=== PATIENT | male | born 1960 | race Caucasian/White ===

== ENCOUNTER → 2019-01-10 | Outpatient (CLI) | payer MEDICARE ==
[~2019-01-10] MED LIST: IOHEXOL 300 MG/ML 75 ML VIAL. IV ONE; IOHEXOL 350 MG/ML 100 ML VIAL. IV ONE
[2019-01-10 12:28] LABS: BASO # 0.1 x10^3/uL (0.0-0.2); BASO % 1 % (0-3); EOS % 0 % (0-3); HEMATOCRIT 39.1 % (39.0-53.0); LYMPH # 1.9 x10^3/uL (1.0-4.8); LYMPH % 26 % (24-48); MEAN CORPUSCULAR HEMOGLOBIN 30 pg (25-35); MEAN CORPUSCULAR HGB CONC 33 g/dL (31-37); MEAN CORPUSCULAR VOLUME 89 fL (79-100); MONO # 0.4 x10^3/uL (0.0-1.1); MONO % 5 % (0-9); NEUT % 67 % (31-73); PLATELET COUNT 240 x10^3/uL (140-400); RED BLOOD COUNT 4.38 x10^6/uL (4.30-5.70); RED CELL DISTRIBUTION WIDTH 13.5 % (11.5-14.5); WHITE BLOOD COUNT 7.4 x10^3/uL (4.0-11.0)
[2019-01-10 12:33] LABS: CALCIUM 8.7 mg/dL (8.5-10.1); CREATININE 1.1 mg/dL (0.7-1.3); GFR 68.5; POTASSIUM 4.3 mmol/L (3.5-5.1)
--- NOTE | 2019-01-10 13:26 | RAD ---
Examination: Right Lower Extremity Venous Doppler Ultrasound History: Superficial vein thrombosis Comparison: None Procedure: Craft scale, color flow 2D and spectal waveform analysis images are obtained with and without compression in the area of the common femoral vein, superficial femoral vein - femoral vein junction, main femoral vein (superficial femoral vein) and popliteal vein. Veins of the proximal calf are also imaged. Findings: There is normal duplex flow, color flow and compressibility of all visualized vein segments. No evidence of deep venous thrombus is present. Echogenicity identified in the greater saphenous vein extending from the junction of the greater saphenous vein with the common femoral vein and greater saphenous vein extending to the mid calf within the greater saphenous vein likely extensive superficial vein thrombosis. Impression: 1. No evidence of DVT. 2. Greater saphenous vein thrombosis. Please note that the thrombosis in the greater saphenous vein is very close to the junction of the greater saphenous vein the common femoral vein. Extensive superficial vein thrombosis in the greater saphenous vein extending to the mid calf level. Electronically signed by: Felipe Gibbs MD (01/10/2019 1:23 PM) [id number]
--- NOTE | 2019-01-10 13:36 | RAD ---
Examination: CT angiography chest HISTORY: History of phlebitis, elevated d-dimer Exposure: One or more of the following individualized dose reduction techniques were utilized for this examination: 1. Automated exposure control 2. Adjustment of the mA and/or kV according to patient size 3. Use of iterative reconstruction technique TECHNIQUE: Axial CT angiographic images were performed with IV contrast. Coronal and sagittal 3-D MIP reformats are performed. FINDINGS: The visualized thyroid gland grossly appears unremarkable. The central airways are patent. The caliber of the aorta grossly appears unremarkable. There is no evidence of filling defect identified in the main pulmonary arterial trunk and right and left main pulmonary arteries. There are filling defects identified in the distal basilar branches of the right lower lobe pulmonary arteries. Mild linear airspace opacity identified in the bibasilar lungs likely atelectasis or infiltrates. The visualized liver, spleen, adrenals grossly appears unremarkable Mild degenerative changes thoracic spine IMPRESSION: 1. Findings consistent with pulmonary embolus in the peripheral branches of the right lower lobe pulmonary arteries. 2. Mild bibasilar lung airspace opacities likely atelectasis or infiltrates. was informed at 1:30 PM same day exam. Electronically signed by: Felipe Gibbs MD (01/10/2019 1:33 PM) [facility]
== END ==
LOC: US 11:57
PROVIDERS: ATTEND Family Medicine
DX: I26.99 Other pulmonary embolism without acute cor pulmonale (principal); I82.811 Embolism and thrombosis of superficial veins of right lower extremity; M47.814 Spondylosis without myelopathy or radiculopathy, thoracic region
CPT/HCPCS: 36415; 71275; 80048; 85025; 85379; 93971; Q9967

== ENCOUNTER → 2019-04-08 | Outpatient (CLI) | payer MEDICARE ==
[~2019-04-08] MED LIST changes: -IOHEXOL 300 MG/ML 75 ML VIAL. IV ONE
--- NOTE | 2019-04-08 16:09 | RAD ---
RIGHT LEG VENOUS DOPPLER STUDY: Clinical indications: History of thrombophlebitis of the right leg. Findings: Duplex sonography (including hernandez scale evaluation and color flow and waveform spectral analysis) of the proximal aspect of the greater saphenous vein and proximal aspect of the profunda femoral vein and the entire length of the common femoral and superficial femoral and popliteal veins and the tibioperoneal trunk and the proximal aspect of the posterior tibial and peroneal veins of the right leg was performed. Normal compressibility, augmentation of color Doppler flow after calf compression, and respiratory variation of Doppler flow is seen. Thus, there are no sonographic findings of deep venous thrombosis within these veins. Impression: There are no sonographic findings of deep venous thrombosis within the veins discussed above of the right lower extremity. The greater saphenous vein from the mid and distal thigh is not completely compressible consistent with chronic superficial thrombophlebitis based on the previous study of January 10, 2019. Electronically signed by: Carlos Bynum MD (04/08/2019 4:06 PM) [id number]
--- NOTE | 2019-04-08 16:25 | RAD ---
CTA chest dated 04/08/2019. Comparison made to 01/10/2019. Clinical data indication: Shortness of breath. History of pulmonary embolus. TECHNIQUE: Continues axial imaging the chest performed following the intravenous administration of 100 cc Isovue-370. Study was performed as dedicated PE protocol with thin cut coronal MIPS 3-D reconstruction. One or more of the following individualized dose reduction techniques were utilized for this examination: 1. Automated exposure control 2. Adjustment of the mA and/or kV according to patient size 3. Use of iterative reconstruction technique FINDINGS: Contrast bolus is adequate. No evidence of central, lobar or segmental pulmonary embolus. Subsegmental branches are not well evaluated based on technique. Previously described peripheral embolus in the right lower lobe posterior basal segment has resolved. Heart size upper limits of normal. No pericardial effusion. No mediastinal, hilar or axillary lymphadenopathy. Thyroid gland is unremarkable. Central airways are patent. Mild diffuse bronchial wall thickening. There is some linear scar or atelectasis at both lung bases. No consolidation or pleural effusion. No pneumothorax. Images of the upper abdomen show no significant abnormality. Bone windows show no acute findings. Mild multilevel spondylosis. IMPRESSION: 1. No evidence of central, lobar or segmental pulmonary embolus. There is been interval resolution of basilar segmental pulmonary embolus on the right. 2. Linear bibasilar scar or atelectasis. Otherwise clear lungs. Electronically signed by: Dominguez Ellis MD (04/08/2019 4:22 PM) [id number]
== END | disposition home or self-care (01) ==
LOC: US 15:21
PROVIDERS: ATTEND Family Medicine
DX: I80.01 Phlebitis and thrombophlebitis of superficial vessels of right lower extremity (principal); R06.02 Shortness of breath; M47.814 Spondylosis without myelopathy or radiculopathy, thoracic region; Z86.711 Personal history of pulmonary embolism
CPT/HCPCS: 71275; 93971; Q9967

== ENCOUNTER → 2021-10-01 | Outpatient (CLI) | payer MEDICARE ==
--- NOTE | 2021-10-01 16:00 | RAD ---
INDICATION: Reason: RT LUMP POST KNEE / Spl. Instructions: / History: COMPARISON: March 2019 TECHNIQUE: Grayscale, color and doppler ultrasound images were obtained of the right lower extremity venous vasculature. RIGHT: No thrombus identified in the common femoral vein, femoral vein, popliteal vein or visualized calf ve ins. IMPRESSION: * No thrombus identified in deep venous system of right lower extremity. * No mass is identified on focused examination of the right popliteal fossa. Electronically signed by: Fernando Peoples MD (10/01/2021 3:58 PM) [id number]
== END ==
LOC: US 13:09
PROVIDERS: ATTEND Family Medicine
DX: I82.491 Acute embolism and thrombosis of other specified deep vein of right lower extremity (principal); I82.492 Acute embolism and thrombosis of other specified deep vein of left lower extremity
CPT/HCPCS: 93971

== ENCOUNTER 2021-10-31 08:59 | Emergency (ER) | payer MEDICARE, MEDICAID ==
[~2021-10-31] VITALS: Ht 172.7 cm; Wt 89.0 kg
[2021-10-31 09:10] VITALS: BP 97/63
--- NOTE | 2021-10-31 09:21 | PHYS DOC ---
General Adult EDM: Chief Complaint: INSECT BITE HPI: HPI: Patient is a 59-year-old male coming in for evaluation of right lower leg pain that woke him from sleep. Patient says the pain is gone now. He is concerned that he got bitten by a brown recluse. Patient is he woke up with a sharp pain in the medial aspect of his right lower leg. Walked around for a little bit and the pain resolved. Denies seeing any insects. Denies any bleeding or redness to the area. Review of Systems: Review of Systems: All other systems within normal limits except for as noted in the HPI Allergies: Allergies: Allergies Coded Allergies Type Severity Reaction Last Updated Verified haloperidol Allergy Unknown 01/10/19 Yes Physical Exam: PE: Constitutional: Well developed, well nourished, no acute distress, non-toxic appearance. [] HENT: Normocephalic, atraumatic, bilateral external ears normal, nose normal. [] Eyes: PERRLA, conjunctiva normal, no discharge. [] Neck: No rigidity, supple, no stridor. [] Cardiovascular: Regular rate and rhythm, brisk cap refill [] Lungs & Thorax: Non labored symmetric respirations, no tachypnea or respiratory distress [] Abdomen: Soft, nondistended. Skin: Warm, dry, no erythema, no rash. No signs of skin irritation or breakage. [] Back: Unremarkable Extremities: No deformities, range of motion grossly intact, no lower extremity edema [] Neurologic: Alert and oriented X 3, no focal deficits noted. [] Psychologic: Affect normal, judgement normal, mood normal. [] EKG: EKG: [] Radiology/Procedures: Radiology/Procedures: [] Heart Score: C/O Chest Pain: No Risk Factors: Risk Factors: DM, Current or recent (<one month) smoker, HTN, HLP, family history of CAD, obesity. Risk Scores: Score 0 - 3: 2.5% MACE over next 6 weeks - Discharge Home Score 4 - 6: 20.3% MACE over next 6 weeks - Admit for Clinical Observation Score 7 - 10: 72.7% MACE over next 6 weeks - Early Invasive Strategies Course & Med Decision Making: Course & Med Decision Making Pertinent Labs and Imaging studies reviewed. (See chart for details) [] Dragangelo Disclaimer: Dragon Disclaimer: This electronic medical record was generated, in whole or in part, using a voice recognition dictation system. Departure Departure: Impression: Primary Impression: Feared condition not demonstrated Disposition: 01 HOME / SELF CARE / HOMELESS Condition: STABLE Referrals: MAR MCKEON MD (PCP) Patient Instructions: WENDY Nassar MD Oct 31, 2021 09:20
== END 2021-10-31 09:30 | disposition home or self-care (01) ==
LOC: ER 08:59
DX: Z71.1 Person with feared health complaint in whom no diagnosis is made (principal); M79.661 Pain in right lower leg; Z88.8 Allergy status to other drugs, medicaments and biological substances
CPT/HCPCS: 99281